=== PATIENT | female | born 1990 | race Caucasian/White ===

== ENCOUNTER 2016-03-11 12:17 | Emergency (ER) | payer SELFPAY ==
[~2016-03-11] VITALS: Ht 165.1 cm; Wt 74.8 kg
[2016-03-11] MEDS ORDERED: HALOPERIDOL LACTATE INJ 5 MG/ML VIAL ONE (12:19)
[2016-03-11] MEDS ORDERED: diphenhydrAMINE HCL 50 MG/ML VIAL ONE (12:19)
[2016-03-11] MEDS ORDERED: LORAZEPAM INJ 2 MG/ML VIAL ONE (12:19)
[2016-03-11] MEDS ORDERED: LORAZEPAM INJ 2 MG/ML VIAL IM ONE (12:30)
[2016-03-11] MEDS ORDERED: HALOPERIDOL LACTATE INJ 5 MG/ML VIAL IM ONE (12:30)
[2016-03-11] MEDS ORDERED: OLANZAPINE 10 MG VIAL IM ONE ×2 (12:35→13:00)
[2016-03-11] MEDS ORDERED: WATER FOR INJECTION,STERILE 10 ML ONE (12:35)
[2016-03-11 12:46] LABS: BASOPHILS # (AUTO) 0.1 /CMM (0.0-0.2); BASOPHILS % (AUTO) 0.8 % (0.0-2.0); DIFF TOTAL % 100 %; EOSINOPHILS # (AUTO) 0.1 /CMM (0.0-0.7); HEMATOCRIT 42 % (33-45); HEMOGLOBIN 14.5 g/dL (11.5-14.8); LYMPHOCYTES # (AUTO) 2.1 /CMM (0.8-4.8); LYMPHOCYTES % (AUTO) 27.3 % (20.0-44.0); MEAN CORPUSCULAR HEMOGLOBIN 29 PG (26.0-33.0); MEAN CORPUSCULAR HGB CONC 35 g/dl (31.0-36.0); MEAN CORPUSCULAR VOLUME 84 fL (82-100); MONOCYTES # (AUTO) 0.2 /CMM (0.1-1.30); NEUTROPHILS # (AUTO) 5.2 /CMM (1.8-8.9); NEUTROPHILS % (AUTO) 68.9 % (43.0-81.0); PLATELET COUNT (AUTO) 254 /CMM (150-450); RED BLOOD CELL COUNT(AUTO) 4.99 MIL/uL (4.0-5.2); WHITE BLOOD COUNT (AUTO) 7.8 K/uL (4.3-11.0)
[2016-03-11 12:55] LABS: CALCIUM, SERUM 8.4 mg/dL (8.5-10.1); CREATININE 0.7 mg/dL (0.6-1.3); POTASSIUM 3.9 mmol/L (3.5-5.1)
[2016-03-11 13:08] LABS: ALBUMIN 4.4 g/dL (3.4-5.0); BILIRUBIN,DIRECT 0.2 mg/dL (0.0-0.2); INDIRECT BILIRUBIN 0.8 mg/dL (0.0-1.1); TOTAL PROTEIN, SERUM 7.6 g/dL (6.4-8.2)
[2016-03-11 13:11] LABS: SALICYLATE 1.7 mg/dL (2.8-20.0)
[2016-03-11] MEDS ORDERED: IV SET PRIMARY 1 EA INFUS.SET MC ONE (14:24)
[2016-03-11] MEDS: IV NS 0.9% 1,000 ML BAG IV ONE ×2 (14:31→14:46)
[2016-03-11] MEDS ORDERED: IV NS 0.9% 1,000 ML ONE (16:05)
[2016-03-11 23:27] VITALS: BP 103/67
== END 2016-03-11 23:27 | disposition home or self-care (01) ==
LOC: ER 12:19
DX: F10.129 Alcohol abuse with intoxication, unspecified (principal)
CPT/HCPCS: 36415; 80048; 80076; 85025; 96360; 96372 ×3; 99284; A4606; G0480; G0481; G0482; J1630; J2060; J3490; J7030; Z7610; G6038-TC; G6039-TC; G6040-TC; J1200